=== PATIENT | male | born 1960 | race Hispanic/Latino ===

== ENCOUNTER 2018-04-19 23:39 | Emergency (ER) | payer SELFPAY ==
[~2018-04-19] VITALS: Ht 170.2 cm; Wt 106.6 kg
--- OUTSIDE RECORDS SUMMARY | 2018-04-19 23:42 | XMS REPORT ---
Author Author [facility] Address Unknown Phone Unavailable Care Team Providers [employer] Name Role Phone Unavailable Unavailable Problems This patient has no known problems. Allergies, Adverse Reactions, Alerts This patient has no known allergies or adverse reactions. Medications This patient has no known medications. Encounters Start Date/Time End Date/Time Encounter Type Admission Type Attending [facility] Facility Care Department Encounter ID 2017-07-15 00:00:00 2017-07-15 00:00:00 Outpatient [facility] [id number] 2017-07-03 00:00:00 2017-07-03 00:00:00 Outpatient [facility] [id number] 2017-07-03 00:00:00 2017-07-03 00:00:00 Outpatient [facility] [id number] 2017-07-02 16:36:11 2017-07-02 16:36:11 Outpatient [facility] [id number] 2017-07-02 15:01:46 2017-07-02 15:01:46 Outpatient [facility] [id number]
[2018-04-20] MEDS ORDERED: DIAZEPAM 5 MG TAB ONE (00:50)
[2018-04-20] MEDS ORDERED: KETOROLAC TROMETHAMINE 60 MG/2 ML VIAL ONE (00:50)
[2018-04-20] MEDS ORDERED: KETOROLAC TROMETHAMINE 60 MG/2 ML VIAL IM ONE (01:00)
[2018-04-20] MEDS ORDERED: DIAZEPAM 5 MG TAB PO SCH (01:00)
[2018-04-20] MEDS ORDERED: DIAZEPAM 5 MG TAB PO ONE (01:15)
--- NOTE | 2018-04-20 02:13 | Diagnostic Imaging Report ---
FEMUR 2 VIEWS MINIMUM LEFT HISTORY: Fall. Pain. COMPARISON: None available. FINDINGS: Bones: No acute displaced fracture. Osseous alignment is within normal limits. Joints: The joint spaces are well-maintained. Soft tissues: Trace suprapatellar joint effusion. IMPRESSION: No acute bony abnormality. Signed by: DR. Kian Angeles MD on 04/20/2018 2:09 AM
== END 2018-04-20 03:00 | disposition home or self-care (01) ==
LOC: ER 23:39
DX: S76.112A Strain of left quadriceps muscle, fascia and tendon, initial encounter (principal); W01.0XXA Fall on same level from slipping, tripping and stumbling without subsequent striking against object, initial encounter; Y92.008 Other place in unspecified non-institutional (private) residence as the place of occurrence of the external cause; I10 Essential (primary) hypertension; B19.20 Unspecified viral hepatitis C without hepatic coma
CPT/HCPCS: 73552; 99283; J1885

== ENCOUNTER 2020-05-17 20:21 | Emergency (ER) | payer SELFPAY ==
[~2020-05-17] VITALS: Ht 170.2 cm; Wt 106.6 kg
[2020-05-17 20:46] LABS: BASOPHILS # (AUTO) 0.1 (0.0-0.1); BASOPHILS % 1.3 % (0.0-1.0); EOSINOPHILS # (AUTO) 0.3 (0.0-0.4); EOSINOPHILS % 5.3 % (0.0-6.0); HEMATOCRIT 40.5 % (38.2-49.6); HEMOGLOBIN 14.3 g/dL (14.0-18.0); MEAN CORPUSCULAR HEMOGLOBIN 34.8 pg (28-32); MEAN CORPUSCULAR HGB CONC 35.3 g/dL (31-35); MEAN CORPUSCULAR VOLUME 98.5 fL (81-99); MONOCYTES # (AUTO) 0.6 (0.2-0.8); NEUTROPHILS # (AUTO) 3.1 (2.1-6.9); NEUTROPHILS % 50.1 % (38.7-80.0); PLATELET COUNT 116 x10e3/uL (140-360); RED BLOOD COUNT 4.11 x10e6/uL (4.3-5.7); RED CELL DISTRIBUTION WIDTH 13.5 % (11.7-14.4)
[2020-05-17 21:02] LABS: ALANINE AMINOTRANSFERASE 51 IU/L (0-55); ALBUMIN 3.4 g/dL (3.5-5.0); ALBUMIN/GLOBULIN RATIO 0.6 (0.8-2.0); ALKALINE PHOSPHATASE 100 IU/L (40-150); BLOOD UREA NITROGEN < 5 mg/dL (7-26); CALCIUM 8.5 mg/dL (8.4-10.2); CARBON DIOXIDE 22 mmol/L (22-29); CHLORIDE 98 mmol/L (98-107); CREATINE KINASE 50 IU/L (30-200); CREATININE, SERUM 0.68 mg/dL (0.72-1.25); EST GLOMERULAR FILTRATION RATE > 60 ML/MIN (60-); GLUCOSE 93 mg/dL (74-118); SODIUM 129 mmol/L (136-145)
[2020-05-17 21:04] LABS: BUN/CREATININE RATIO 7 (6-25)
[2020-05-17 21:21] LABS: COLOR,URINE YELLOW (YELLOW)
[2020-05-17 21:22] LABS: AMPHETAMINES SCREEN,URINE NEGATIVE (NEGATIVE); BENZODIAZEPINES SCREEN,URINE NEGATIVE (NEGATIVE); CLARITY,URINE CLEAR (CLEAR); KETONES,URINE NEGATIVE (NEGATIVE); LEUKOCYTE ESTERASE ,URINE NEGATIVE (NEGATIVE); NITRITE,URINE NEGATIVE (NEGATIVE); PHENCYCLIDINE SCREEN,URINE NEGATIVE (NEGATIVE); PROTEIN,URINE DIPSTICK NEGATIVE (NEGATIVE)
[2020-05-17 21:23] LABS: URINE UROBILINOGEN 0.2 mg/dL (0.2 - 1)
[2020-05-17] MEDS ORDERED: IOPAMIDOL 370 MG/ML 200 ML INFUS..BTL INJ ONE (21:58)
[2020-05-17] MEDS ORDERED: SODIUM CHLORIDE 0.9% 50ML 50 ML ONE (21:58)
[2020-05-17 22:04] LABS: AMYLASE 88 U/L (25-125); LIPASE 51 U/L (8-78)
[2020-05-18 00:05] LABS: CREATINE KINASE MB 0.7 ng/mL (0-5.0)
[2020-05-18 00:33] VITALS: BP 148/88
== END 2020-05-18 00:35 | disposition home or self-care (01) ==
LOC: ER 20:40
DX: R10.13 Epigastric pain (principal); K80.80 Other cholelithiasis without obstruction; K74.60 Unspecified cirrhosis of liver; I10 Essential (primary) hypertension
CPT/HCPCS: 36415; 71045; 74177; 80053; 80307; 81001; 82150; 82550; 82553; 83690; 84484; 85025; 93005; 99283; Q9967

== ENCOUNTER 2023-01-30 12:29 | Emergency (ER) | payer SELFPAY ==
[~2023-01-30] VITALS: Ht 170.2 cm; Wt 106.6 kg
[2023-01-30 12:37] VITALS: O2SAT 98
[2023-01-30] MEDS ORDERED: KETOROLAC TROMETHAMINE 30 MG/ML VIAL IM STA (13:06)
[2023-01-30] MEDS ORDERED: NAPROXEN250 MG PO (13:52)
== END 2023-01-30 14:42 | disposition home or self-care (01) ==
LOC: ER 12:36
DX: M79.645 Pain in left finger(s) (principal); I10 Essential (primary) hypertension; K76.9 Liver disease, unspecified
CPT/HCPCS: 73130; 99283; J1885

== ENCOUNTER 2024-09-30 17:34 | Emergency (ER) | payer MEDICARE ==
[~2024-09-30] VITALS: Ht 170.2 cm; Wt 106.6 kg
[~2024-09-30 17:34] MED LIST: NAPROXEN250 MG PO
[2024-09-30] MEDS ORDERED: Morphine 4mg INJECTION 4 MG/ML INJ IV STA (18:10)
[2024-09-30 19:09] LABS: BASOPHILS % 0.8 % (0.0-1.0); EOSINOPHILS % 3.8 % (0.0-6.0); LYMPHOCYTES % 19.0 % (18.0-39.1); MONOCYTES % 14.6 % (4.4-11.3); NEUTROPHILS % 61.3 % (38.7-80.0); RED CELL DISTRIBUTION WIDTH 14.4 % (11.7-14.4)
[2024-09-30] MEDS: SODIUM CHLORIDE 0.9% 1000ML 1,000 ML IV STA (19:18)
[2024-09-30] MEDS: ONDANSETRON HCL INJ 2MG/ML 2ML 2 MG/ML VIAL IV STA (19:18)
[2024-09-30 19:34] LABS: EST GLOMERULAR FILTRATION RATE 98.0 ML/MIN (>=60)
[2024-09-30] MEDS ORDERED: IOPAMIDOL 370 MG/ML 100 ML INFUS..BTL INJ ONE (19:54)
[2024-09-30] MEDS: POTASSIUM CHLORIDE 20 MEQ TAB CR PO STA (20:07)
[2024-09-30] MEDS: POTASSIUM CHLORIDE 20MEQ/100ML 100 ML IV STA (20:07)
[2024-09-30 20:12] LABS: INR 2.08
[2024-09-30 21:14] LABS: LEUKOCYTE ESTERASE ,URINE NEGATIVE (NEGATIVE); PROTEIN,URINE DIPSTICK NEGATIVE (NEGATIVE)
[2024-09-30 21:15] LABS: URINE UROBILINOGEN 4.0 mg/dL (0.2 - 1)
[2024-09-30] MEDS ORDERED: Morphine 2mg Syringe 2 MG/ML SYR IV PRN (22:00)
[2024-09-30] MEDS ORDERED: ONDANSETRON HCL INJ 2MG/ML 2ML 2 MG/ML VIAL IV PRN (22:00)
[2024-09-30 22:05] LABS: EPITHELIAL CELLS,URINE FEW /LPF; WBC,URINE (MAN) 0-5 /HPF (0-5)
[2024-09-30] MEDS: LACTATED RINGER'S 1,000 ML INJ SCH (23:39)
[2024-10-01 00:30] VITALS: PULSE 62; RESP 14; O2SAT 98
[2024-10-01 01:41] LABS: EST GLOMERULAR FILTRATION RATE 98.0 ML/MIN (>=60)
[2024-10-01 03:02] VITALS: BP 108/56; PULSE 66; RESP 12; TEMP 97.5
[2024-10-01] MEDS ORDERED: LACTULOSE SYRUP 20 GM/30 ML UDC ONE (03:10)
[2024-10-01] MEDS ORDERED: PIPERACILLIN/TAZOBACTAM 3.375 GM VIAL ONE (03:10)
[2024-10-01] MEDS: LACTULOSE SYRUP 20 GM/30 ML UDC PO PRN (03:32)
[2024-10-01 03:38] VITALS: PULSE 69; RESP 12; TEMP 97.4; O2SAT 99
== END 2024-10-01 03:45 | disposition other institution (70) ==
LOC: ER 17:55 → ERHOLD 22:01 → UNDOADMIN 22:01 → ER 10-01 03:45
DX: R10.13 Epigastric pain (principal); E80.6 Other disorders of bilirubin metabolism; K76.82 Hepatic encephalopathy; E87.6 Hypokalemia; E87.1 Hypo-osmolality and hyponatremia; F10.10 Alcohol abuse, uncomplicated; K74.60 Unspecified cirrhosis of liver; D61.818 Other pancytopenia; K76.9 Liver disease, unspecified; K80.20 Calculus of gallbladder without cholecystitis without obstruction; R94.31 Abnormal electrocardiogram [ECG] [EKG]
CPT/HCPCS: 36415; 74177; 80053; 80320; 81001; 82140; 82550; 83690; 83735; 84484; 85025; 85610; 85730; 93005; 94799; 99284; J2405; J2543 ×2; J3480; J7030; J7121; Q9967